=== PATIENT | female | born 1970 | race African-American/Black ===

== ENCOUNTER 2016-09-20 17:50 | Emergency (ER) | payer OTHER ==
[2016-09-20 17:58] VITALS: BP 150/63; PULSE 83; TEMP 98.7; BMI 33.2
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
== END 2016-09-20 18:39 | disposition home or self-care (01) ==
LOC: JERFT 17:50
DX: T74.11XA Adult physical abuse, confirmed, initial encounter (principal); S50.11XA Contusion of right forearm, initial encounter; S80.12XA Contusion of left lower leg, initial encounter; S80.11XA Contusion of right lower leg, initial encounter; Y04.2XXA Assault by strike against or bumped into by another person, initial encounter; Y93.89 Activity, other specified; Y92.098 Other place in other non-institutional residence as the place of occurrence of the external cause; Y07.499 Other family member, perpetrator of maltreatment and neglect
CPT/HCPCS: 99281-25